=== PATIENT | female | born 1955 | race American Indian/Alaskan Native ===

== ENCOUNTER 2016-07-08 09:47 | Outpatient (CLI) | payer BC ==
--- NOTE | 2016-07-08 10:54 | Mammography Report ---
Screening mammogram: Routine views are compared to her prior study in 2013. There is a focal area of asymmetry in the left breast which is unchanged. There is also focal somewhat irregular shaped area of asymmetry in this. Are right breast possibly in the medial breast is seen in the CC view. This is not apparent on prior study. The findings otherwise are generally fatty replaced and unremarkable and likewise unchanged from prior study. CAD used. Impression: Right breast asymmetry. Recommendation: Additional mammogram imaging of the right breast and ultrasound is needed. BI-RADS CATEGORY: 0 = Needs additional imaging evaluation ACR BI-RADS MAMMOGRAPHIC CODES: 0 = Needs additional imaging evaluation; 1 = Negative; 2 = Benign; 3 = Probably benign; 4 = Suspicious; 5 = Malignant; 6 = Known biopsy-proven malignancy COMMENT: 1. Dense breast tissue, i.e., adenosis, fibrocystic changes, etc., may obscure an underlying neoplasm. 2. Approximately 10% of cancers are not detected with mammography. 3. A negative mammography report should not delay biopsy if a clinically suspicious mass is present.
== END 2016-07-08 09:48 | disposition home or self-care (01) ==
LOC: MAMMO 09:47
PROVIDERS: ATTEND Internal Medicine
DX: Z12.31 Encounter for screening mammogram for malignant neoplasm of breast (principal)
CPT/HCPCS: 77067; G0202

== ENCOUNTER 2016-07-22 13:31 | Outpatient (CLI) | payer BC ==
--- NOTE | 2016-07-22 14:40 | Mammography Report ---
Spot compression magnification and sonographic examination of approximate 4 mm diameter density upper inner right breast: Findings: On spot magnification view there is faint persistence of density is identified without spiculation or microcalcification. There is oval hypoechoic circumscribed mass measuring 0.49 cm in maximum diameter noted at 3:00 position 6 cm from nipple appeared to correspond to the density seen on the mammogram. Incidentally noted 0.3 x 0.4 cm benign cyst at 10:00 position 1 cm from nipple. Impression: Probably benign mass upper inner right breast. Six-month followup with mammogram and sonogram recommended to establish stability of the lesion. BI-RADS CATEGORY: 3 = Probably benign ACR BI-RADS MAMMOGRAPHIC CODES: 0 = Needs additional imaging evaluation; 1 = Negative; 2 = Benign; 3 = Probably benign; 4 = Suspicious; 5 = Malignant; 6 = Known biopsy-proven malignancy COMMENT: 1. Dense breast tissue, i.e., adenosis, fibrocystic changes, etc., may obscure an underlying neoplasm. 2. Approximately 10% of cancers are not detected with mammography. 3. A negative mammography report should not delay biopsy if a clinically suspicious mass is present. COMMENT: Patient follow-up letters are generated in [facility].
== END 2016-07-22 13:32 | disposition home or self-care (01) ==
LOC: MAMMO 13:31
PROVIDERS: ATTEND Internal Medicine
DX: N60.01 Solitary cyst of right breast (principal)
CPT/HCPCS: 76642; G0206

== ENCOUNTER 2016-12-23 12:49 | Outpatient (CLI) | payer BC ==
--- NOTE | 2016-12-23 13:28 | Mammography Report ---
Right mammogram: The exam shows as a six-month followup. There are no discrete nodules. In the CC view there couple areas of irregular contour densities which have no overtly suspicious characteristics. There are no new findings or significant changes from prior exams in June and July 2016. Impression: Stable exam. Recommendation: Reevaluate with annual screening mammogram in 6 months. BI-RADS CATEGORY: 3 = Probably benign ACR BI-RADS MAMMOGRAPHIC CODES: 0 = Needs additional imaging evaluation; 1 = Negative; 2 = Benign; 3 = Probably benign; 4 = Suspicious; 5 = Malignant; 6 = Known biopsy-proven malignancy COMMENT: 1. Dense breast tissue, i.e., adenosis, fibrocystic changes, etc., may obscure an underlying neoplasm. 2. Approximately 10% of cancers are not detected with mammography. 3. A negative mammography report should not delay biopsy if a clinically suspicious mass is present.
== END 2016-12-23 12:50 | disposition home or self-care (01) ==
LOC: MAMMO 12:49
PROVIDERS: ATTEND Internal Medicine
DX: R92.8 Other abnormal and inconclusive findings on diagnostic imaging of breast (principal)
CPT/HCPCS: G0206-RT

== ENCOUNTER 2019-02-05 08:06 | Outpatient (CLI) | payer BC ==
--- NOTE | 2019-02-05 09:27 | Mammography Report ---
LEFT DIGITAL DIAGNOSTIC MAMMOGRAM WITH CAD -- 02/05/2019 LEFT LIMITED BREAST ULTRASOUND INDICATION: Recall to evaluate asymmetry. R92.8 TECHNIQUE: Digital left mammographic imaging was performed. Spot compression views were obtained. Li mited ultrasound was performed. This examination was interpreted with the benefit of Computer-Aided D etection (CAD) analysis. COMPARISON: 01/01/2019 screening and 09/07/2016 screening FINDINGS: Breast Density: The breast is mostly fatty. MAMMOGRAPHIC FINDINGS: Additional mammographic views demonstrate an irregular mass at 12:00. It has h eterogeneous density and partially ill-defined margins. ULTRASOUND FINDINGS: Targeted ultrasound evaluation was performed of the area of interest. Ultrasou nd demonstrated a heterogeneous solid mass at 12:00 6 cm from the nipple measuring 1.6 x 1.3 x 1.0 cm . This is most likely an island of benign fibroglandular structures. IMPRESSION: A probably benign 1.6 cm left breast mass at 12:00 6 cm from the nipple. This appears to be an island of benign fibroglandular structures which has become more dense since 2017. Recommend 6 month follow-up mammogram and ultrasound. Follow up recommendation: Short term follow up in 6 months. BI-RADS Category 6: Known Biopsy-Proven Malignancy. A "normal" or negative report should not discourage follow up or biopsy of a clinically significant f inding. A written summary of these findings will be mailed to the patient. The patient will be entered into a mammography reporting system which will generate a reminder letter for the patient's next appointmen t at the appropriate interval. According to the [employer], yearly mammograms are recommended starting at age 40 and continuing as long as a woman is in good health. Breast MRI is recommended for women with an alejandra roximately 20-25% or greater lifetime risk of breast cancer, including women with a strong family his tory of breast or ovarian cancer and women who have been treated for Hodgkin's disease. Signer Name: Jay White MD Signed: 02/05/2019 9:22 AM Workstation Name: [id number]
== END 2019-02-05 08:07 | disposition home or self-care (01) ==
LOC: MAMMO 08:06
PROVIDERS: ATTEND Internal Medicine
DX: R92.8 Other abnormal and inconclusive findings on diagnostic imaging of breast (principal)

== ENCOUNTER 2020-07-07 10:40 | Outpatient (CLI) | payer BC ==
--- NOTE | 2020-07-07 12:51 | Mammography Report ---
DIGITAL SCREENING MAMMOGRAM WITH CAD, 07/07/2020 CLINICAL INFORMATION / INDICATION: Routine screening mammography. TECHNIQUE: Digital bilateral 2D mammography was obtained in the craniocaudal and mediolateral obliqu e projections. This examination was interpreted with the benefit of Computer-Aided Detection analysis . COMPARISON: 02/05/2019, 01/01/2019 FINDINGS: Breast Density: There are scattered areas of fibroglandular density. No dominant mass, suspicious calcifications, or architectural distortion in the right breast. The pre viously described focal asymmetry in the 12:00 left breast anteriorly is slightly smaller, measuring up to 3.2 cm on the MLO view, previously 3.3 cm . No other significant abnormality of the left breast . IMPRESSION: No mammographic evidence of malignancy. Follow up recommendation: Routine yearly BI-RADS Category 2: Benign. A "normal" or negative report should not discourage follow up or biopsy of a clinically significant f inding. A written summary of these findings will be mailed to the patient. The patient will be entered into a mammography reporting system which will generate a reminder letter for the patient's next appointmen t at the appropriate interval. The [employer] recommends yearly mammograms starting at age 40 and continuing as l jimmy as a woman is in good health. Breast MRI is recommended for women with an approximate 20-25% or greater lifetime risk of breast cancer, including women with a strong family history of breast or ova grady cancer or who have been treated for Hodgkin's disease. Signer Name: Sergey Montenegro MD Signed: 07/07/2020 12:47 PM Workstation Name: [facility]
== END 2020-07-07 10:41 | disposition home or self-care (01) ==
LOC: MAMMO 10:40
PROVIDERS: ATTEND Internal Medicine
DX: Z12.31 Encounter for screening mammogram for malignant neoplasm of breast (principal)
CPT/HCPCS: 77067

== ENCOUNTER 2021-07-08 09:55 | Outpatient (CLI) | payer BC ==
--- NOTE | 2021-07-08 15:42 | Mammography Report ---
DIGITAL SCREENING MAMMOGRAM WITH CAD, 07/08/2021 CLINICAL INFORMATION / INDICATION: Routine screening mammography. SCREENING MAMMOGRAM TECHNIQUE: Digital bilateral 2D mammography was obtained in the craniocaudal and mediolateral obliqu e projections. This examination was interpreted with the benefit of Computer-Aided Detection analysis . COMPARISON: 07/07/2020. FINDINGS: Breast Density: There are scattered areas of fibroglandular density. No dominant mass, suspicious calcifications, or architectural distortion in either breast. IMPRESSION: No mammographic evidence of malignancy. Follow up recommendation: Routine yearly BI-RADS Category 1: NEGATIVE A "normal" or negative report should not discourage follow up or biopsy of a clinically significant f inding. A written summary of these findings will be mailed to the patient. The patient will be entered into a mammography reporting system which will generate a reminder letter for the patient's next appointmen t at the appropriate interval. The [employer] recommends yearly mammograms starting at age 40 and continuing as l jimmy as a woman is in good health. Breast MRI is recommended for women with an approximate 20-25% or greater lifetime risk of breast cancer, including women with a strong family history of breast or ova grady cancer or who have been treated for Hodgkin's disease. Signer Name: Abhinav Barrera MD Signed: 07/08/2021 3:38 PM Workstation Name: [id number]
== END 2021-07-08 09:56 | disposition home or self-care (01) ==
LOC: MAMMO 09:55
PROVIDERS: ATTEND Internal Medicine
DX: Z12.31 Encounter for screening mammogram for malignant neoplasm of breast (principal)
CPT/HCPCS: 77067